=== PATIENT | female | born 1955 | race African-American/Black ===

== ENCOUNTER 2017-01-11 11:40 | Emergency (ER) | payer OTHER ==
--- NOTE | ~2017-01-11 | CT71 ---
[facility] A Service of [facility] RADIOLOGY TEXT RESULTS PATIENT: SCHUYLER SOFIA LOCATION: [facility] : 59 UNIT #: [id number] AGE: [address]: Manuel Bolton MD SEX: F ORDER DR: [id number] [facility] [address] [place], [place] [address] [id number] E MR#: [id number] Acc #: [id number] NAME: SCHUYLER SOFIA. : 1955 SEX: F STUDY DATE/TIME: 01/11/2017 14:46 UNIT: [facility] ROOM: STUDY DESCRIPTION: CT Head Wo Contrast Attending Physician: Marcio Bolton M.D. Ordering Physician: Wes Fallon M.D. Primary Care Physician: Misti Alicea M.D. MEDICAL IMAGING REPORT This report is preliminary unless electronic signature is present EXAM Head CT without contrast, 01/11/2017. PROCEDURE Axial unenhanced head CT. This CT exam was performed with one or more of the following radiation dose reduction techniques: automatic exposure control, adjustment of mA and/or kV according to patient size, and iterative reconstruction. COMPARISON Prior head CT, 01/26/2009. HISTORY Migraine headache since 01/10/2017. FINDINGS There is no intracranial hemorrhage. There are nonspecific white matter changes, fairly symmetric and new since the prior study, involving the basal ganglia bilaterally, well demarcated and mature-appearing, and there is no hemorrhage, hydrocephalus, or extraaxial fluid collection. The skull base and calvaria are remarkable for a right maxillary sinus air-fluid level, suggesting acute sinusitis, along with left maxillary and bilateral ethmoid sinus mucosal thickening. IMPRESSION 1. Moderate nonspecific white matter change, slightly greater than expected for age, findings suggesting chronic small vessel ischemic changes. There is no hemorrhage, mass, or compelling evidence of acute infarct. 2. There are changes of sinus mucosal disease, including right maxillary sinus air-fluid level and left maxillary and bilateral ethmoid sinus mucosal thickening. [facility] A Service of [facility] RADIOLOGY TEXT RESULTS PATIENT: SCHUYLER SOFIA [id number] 59 UNIT #: [id number] AGE: [address]: Manuel Boltno MD SEX: F ORDER DR: Dictated by... Julian Anguiano M.D. THIS IS AN ELECTRONICALLY VERIFIED REPORT Julian Anguiano M.D. at 01/16/2017 10:04 AM JOE/rita TD: 01/11/2017 17:52 JOB #: [id number] MEDICAL IMAGING REPORT Page 1 of 1 COPY
[~2017-01-11 11:40] MED LIST: AVANDIA PO; CELEBREX PO; DARVOCET-N 1001 TA1 DOB; FLEXERIL PO; GLUCOTROL PO; GLUCOVANCE 5/501 TA1 PO; HCTZ PO; LANTUS100 U/ML SQ; LISINOPRIL PO; LORTAB 10-5001 EACH PO; LORTAB 5/500 TA1 TA1 PO; LORTAB 7.5-5001 TAB PO; LYRICA PO; METFORMIN PO; PAXIL PO; PORTLAND PHARMACY; TOPROL XL
[2017-01-11 14:12] LABS: BASOPHIL% 0.3 % (0-2.5); EOSINOPHIL# 0.1 X10e3 (0-0.7); EOSINOPHIL% 1.1 % (0.0-7.0); HEMATOCRIT 44.2 % (35.0-45.0); HEMOGLOBIN 14.6 gm/dL (12.0-16.0); LYMPHOCYTE# 2.5 X10e3 (1.0-3.5); LYMPHOCYTE% 20.6 % (17.0-45.0); MEAN CELL VOLUME 92.3 FL (83-96); MEAN CORPUSCULAR HEMOGLOBIN 30.4 PG (28-34); MONOCYTE# 0.5 X10e3 (0-1.0); MONOCYTE% 4.3 % (3.0-12.0); NEUTROPHIL# 8.8 X10e3 (1.5-7.1); NEUTROPHIL% 73.7 % (40-75); PLATELET COUNT 268 X10e3 (140-420); RED BLOOD COUNT 4.79 X10e (3.90-5.30); RED CELL DISTRIBUTION WIDTH 12.6 % (11.0-15.5)
[2017-01-11 14:35] LABS: BUN/CREATININE RATIO 11.25; CALCIUM SERUM 9.1 mg/dL (8.4-10.2); CREATININE SERUM 0.8 mg/dL (0.6-1.4); GLOM FILT RATE Estimated 93.6 mL/min (>60); POTASSIUM 3.7 mmol/L (3.5-5.1)
[2017-01-11 14:36] LABS: DIFF IND NO
== END 2017-01-11 16:57 | disposition home or self-care (01) ==
LOC: CED 11:40
PROVIDERS: Emergency Medicine
DX: G44.209 Tension-type headache, unspecified, not intractable (principal); E11.9 Type 2 diabetes mellitus without complications; I10 Essential (primary) hypertension; F17.210 Nicotine dependence, cigarettes, uncomplicated; Z90.89 Acquired absence of other organs; Z91.041 Radiographic dye allergy status
CPT/HCPCS: 36415; 70450; 80048; 85025; 96361; 96374; 96375; 99284; J1885; J2765